=== PATIENT | female | born 1965 | race Caucasian/White ===

== ENCOUNTER 2016-10-18 20:43 | Emergency (ER) ==
[2016-10-18 20:51] VITALS: TEMP 100; BMI 26.2
[2016-10-18] MEDS ORDERED: ROCEPHIN IM STA (21:19)
[2016-10-18] MEDS ORDERED: LIDOCAINE 1 % AMP 5 ML (SUTURES) IM STA (21:19)
--- NOTE | 2016-10-18 21:24 | ED.PDOC ---
General ED Provider: Dr. 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 She then started feeling itchy and started scratching with the left left. She scratched enought to brake the formed blisters. Now has some redness and mild pain. Was worried it was getting infected. Also has hypertension and has medications but not been taking them. Education provided on risk of elevated blood pressure including Stroke and heart attack She promises to be compliant. Time Seen by Physician: 21:20 Mode of Arrival: Walk-In Information Source: Patient Primary Care Provider: KODY HURD Nursing and Triage Documentation Reviewed and Agree: Yes Skin Complaint Exam - Skin Rash/Itching Complaint/Exam Onset/Duration: 2 days Symptoms Are: Still present Initial Severity: Mild Current Severity: Moderate Location: Left vasquez Potential Exposures: Reports: Plants, Insect bite Prior Treatment: none Aggravating: Reports: None Alleviating: Reports: None Associated Signs and Symptoms: Denies: Difficulty breathing, Fever, Chills Skin Findings: Present: Urticaria, Maculae Body Picture: 1 - mild redness no warmth. Small healing blisters. Differential Diagnoses: Urticaria, Other (Cellulitis ) Review of Systems - Review Of Systems Constitutional: Reports: No symptoms Eyes: Reports: No symptoms Ears, Nose, Mouth, Throat: Reports: No symptoms Respiratory: Reports: No symptoms Cardiac: Reports: No symptoms GI: Reports: No symptoms : Reports: No symptoms Musculoskeletal: Reports: No symptoms Skin: Reports: Lesions, Rash Neurological: Reports: No symptoms Endocrine: Reports: No symptoms Hematologic/Lymphatic: Reports: No symptoms All Other Systems: Reviewed and Negative Past Medical History - Past Medical History Previously Healthy: Yes Endocrine: Reports: None Cardiovascular: Reports: Hypertension Respiratory: Reports: None Hematological: Reports: None Gastrointestinal: Reports: None Genitourinary: Reports: None Neuro/Psych: Reports: Anxiety, Depression Musculoskeletal: Reports: None Cancer: Reports: None Last Menstrual Period: 1 year ago - Surgical History General Surgical History: Reports: Cholecystectomy, Hernia Repair - Family History Family History: Reports: None - Social History Smoking Status: Former smoker Hx Substance Use: No Alcohol Screening: Occasionally - Immunizations Tetanus Shot up to Date: Yes Physical Exam - Physical Exam Appearance: Ill-appearing Ill-appearing: Mild Eyes: YOMI, EOMI, Conjunctiva clear Neck: Supple Respiratory: Airway patent, Breath sounds clear, Breath sounds equal, Respirations nonlabored Cardiovascular: RRR, Pulses normal, No rub, No murmur Musculoskeletal: Edema Skin: Warm, Dry Neurological: Sensation intact, Motor intact, Reflexes intact, Cranial nerves intact, Alert, Oriented Psychiatric: Anxious Critical Care Note - Critical Care Note Total Time (mins): 0 Course - Course Orders, Labs, Meds: Orders Category Date Time Status Ceftriaxone Sodium [Rocephin] MEDS 10/18/16 21:19 Discontinued 1 gm IM ONCE STA Clonidine HCl [Catapres] MEDS 10/18/16 22:23 Discontinued 0.1 mg PO ONCE STA Enalapril Maleate [Vasotec] MEDS 10/18/16 21:32 Discontinued 5 mg PO ONCE STA Lidocaine HCl/Pf [Lidocaine 1 % Amp 5 ml (Sutures)] MEDS 10/18/16 21:19 Discontinued 2.1 ml IM ONCE STA Medications Discontinued Medications Generic Name Dose Route Start Last Admin Trade Name Freq PRN Reason Stop Dose Admin Ceftriaxone Sodium 1 gm 10/18/16 21:19 10/18/16 21:35 Rocephin IM 10/18/16 21:20 1 gm ONCE STA Administration Clonidine 0.1 mg 10/18/16 22:23 10/18/16 22:28 Catapres PO 10/18/16 22:24 0.1 mg ONCE STA Administration Enalapril Maleate 5 mg 10/18/16 21:32 10/18/16 21:38 Vasotec PO 10/18/16 21:33 5 mg ONCE STA Administration Lidocaine HCl 2.1 ml 10/18/16 21:19 10/18/16 21:34 Lidocaine 1 % Amp 5 Ml (Sutures) IM 10/18/16 21:20 2.1 ml ONCE STA Administration Vital Signs: Temp Pulse Resp BP Pulse Ox 10/18/16 22:47 84 186/107 H 99 10/18/16 20:43 100.0 F H 114 H 20 164/122 H 98 Departure - Departure Time of Disposition: 22:46 Disposition: HOME SELF-CARE Discharge Problem: Cellulitis of left lower leg, Hypertension Instructions: Cellulitis (ED), Hypertension (ED) Condition: Fair Pt referred to PMD for follow-up: Yes Additional Instructions: Stop taking Bistolic due to side effect of Fatigue Start Taking Lisinipril 10mg daily Follow up with Your PCP for medication adjustment depending on your blood pressure response Take Antibiotics as prescribed. Take your anxiety medications as needed. Prescriptions: Cephalexin [Keflex] 500 mg PO Q8HR #30 capsule Lisinopril [Zestril] 10 mg PO DAILY #30 tab Allergies/Adverse Reactions: Allergies No Known Allergies Allergy (Unverified 10/18/16 20:48) Home Medications: Ambulatory Orders Cephalexin [Keflex] 500 mg PO Q8HR #30 capsule 10/18/16 Clonazepam [Klonopin] 0.5 mg PO DAILY 10/18/16 Lisinopril [Zestril] 10 mg PO DAILY #30 tab 10/18/16 Sertraline HCl [Zoloft] 50 mg PO DAILY 10/18/16 Disposition Discussed With: Patient, Family
[2016-10-18] MEDS ORDERED: VASOTEC PO STA (21:32)
[2016-10-18] MEDS ORDERED: CATAPRES PO STA (22:23)
[2016-10-18 22:47] VITALS: BP 186/107
== END 2016-10-18 23:07 | disposition home or self-care (01) ==
LOC: ED 20:43
DX: L03.116 Cellulitis of left lower limb (principal); S80.862A Insect bite (nonvenomous), left lower leg, initial encounter; I10 Essential (primary) hypertension; W57.XXXA Bitten or stung by nonvenomous insect and other nonvenomous arthropods, initial encounter
CPT/HCPCS: 96372; 99283

== ENCOUNTER 2017-07-01 10:19 | Outpatient (CLI) ==
--- NOTE | 2017-07-01 12:21 | MAMMO ---
EXAM: Digital screening mammogram with tomosynthesis HISTORY: Screening COMPARISON: 07/02/2015 FINDINGS: Digital MLO and CC views of the right and left breast were performed. Tomosynthesis was p erformed. Computer aided detection utilized. The breast tissue is heterogeneously dense, which coul d obscure small masses. There is no evidence for mass, asymmetry, distortion, or suspicious calcific ations in either breast. IMPRESSION: 1. No evidence of malignancy in the right or left breast. 2. Annual screening mammogram is recommended in one year. BIRADS category 1, negative examination
== END 2017-07-01 10:20 | disposition home or self-care (01) ==
LOC: RAD 10:19
PROVIDERS: ATTEND Internal Medicine
DX: Z12.31 Encounter for screening mammogram for malignant neoplasm of breast (principal)
CPT/HCPCS: 77067